=== PATIENT | female | born 1980 | race Caucasian/White ===

== ENCOUNTER 2025-03-20 08:58 | Outpatient (CLI) | payer BC | END 2025-03-20 08:59 | disposition home or self-care (01) | LOC: CSHSLEEP 08:58 | PROVIDERS: ATTEND Nurse Practitioner Family | DX: G47.33 Obstructive sleep apnea (adult) (pediatric) (principal); R53.83 Other fatigue; F41.9 Anxiety disorder, unspecified; R06.83 Snoring | CPT/HCPCS: 95800 ==